=== PATIENT | female | born 1990 | race Caucasian/White ===

== ENCOUNTER 2016-04-21 22:44 | Inpatient (IN) | payer MEDICAID ==
[~2016-04-21] VITALS: Ht 152.4 cm; Wt 78.0 kg
[~2016-04-21 22:44] MED LIST: ROPIVACAINE 0.2% 20 ML VL EPIDURAL ONE
[2016-04-21 23:01] VITALS: Ht 152.4 cm; Wt 78.0 kg
[2016-04-21] MEDS ORDERED: METOCLOPRAMIDE 10 MG/2 ML VIAL IV PUSH PRN (23:10)
[2016-04-21] MEDS ORDERED: TERBUTALINE 1 MG/ML VIAL SUBQ PRN (23:10)
[2016-04-21] MEDS ORDERED: ONDANSETRON 4 MG VIAL IV PRN (23:10)
[2016-04-21] MEDS ORDERED: FAMOTIDINE 20 MG INJ IV PRN (23:10)
[2016-04-21] MEDS ORDERED: LIDOCAINE 1% 30 ML PF INFILTRATE ONE (23:10)
[2016-04-21] MEDS ORDERED: ALU/MAG/SIM 30 ML UDC PO PRN (23:10)
[2016-04-21] MEDS ORDERED: FAMOTIDINE 20 MG TAB PO PRN (23:10)
[2016-04-21] MEDS ORDERED: ACETAMINOPHEN 325 MG TAB PO PRN (23:10)
[2016-04-21] MEDS ORDERED: CEFAZOLIN (LD/OB) 100 ML IV PRN (23:10)
[2016-04-21] MEDS ORDERED: PROMETHAZINE 25 MG/ML VIAL IV PRN (23:10)
[2016-04-21] MEDS ORDERED: OXYTOCIN 15 UNITS/250 ML NS 250 ML IV SCH (23:10)
[2016-04-21] MEDS ORDERED: LIDOCAINE 1% BUFFERED 1 ML SYR INTRADERM PRN (23:10)
[2016-04-22] MEDS ORDERED: BUTORPHANOL 2 MG/ML VIAL IV PRN
[2016-04-22] MEDS ORDERED: ROPIV/FENT 0.2%-2MCG/ML 100 ML EPIDURAL ONE (01:39)
[2016-04-22] MEDS ORDERED: FENTANYL 100 MCG/2 ML AMP ONE (01:39)
[2016-04-22] MEDS ORDERED: LIDOCAINE 1% 30 ML PF ONE (01:40)
[2016-04-22] MEDS ORDERED: LACT RINGERS 500 ML IV PRN (02:20)
[2016-04-22] MEDS ORDERED: LACT RINGERS 500 ML IV ONE (02:20)
[2016-04-22] MEDS ORDERED: FENTANYL 100 MCG/2 ML AMP EPIDURAL ONE (02:20)
[2016-04-22] MEDS ORDERED: SODIUM CHLORIDE 0.9% 500 ML IV PRN (02:20)
[2016-04-22] MEDS: LACT RINGERS 1,000 ML IV SCH ×4 (02:52→15:30)
[2016-04-22] MEDS: ROPIV/FENT 0.2%-2MCG/ML 100 ML EPIDURAL SCH ×2 (02:52→11:10)
[2016-04-22] MEDS ORDERED: **ONLY ANESTEHSIA MAY ORDER OPIATES WHILE ON EPIDURAL XX SCH (08:00)
[2016-04-22] MEDS ORDERED: OXYTOCIN 15 UNITS/250 ML NS 250 ML IV SCH ×2 (16:45→23:20)
[2016-04-22 23:10] VITALS: BP_SYST 122; RESP 20
[2016-04-22 23:15] VITALS: BP_SYST 134; RESP 18
[2016-04-22] MEDS ORDERED: BISACODYL 10 MG SUPP RECTAL PRN (23:20)
[2016-04-22] MEDS ORDERED: MAG HYDROX 30 ML UDC PO PRN (23:20)
[2016-04-22] MEDS ORDERED: ZOLPIDEM 5 MG TAB PO PRN (23:20)
[2016-04-22] MEDS ORDERED: TDaP 0.5 ML VIAL IM.VACC ONE (23:20)
[2016-04-22] MEDS ORDERED: MEASLES,MUMPS,RUBELLA VAC SUBQ.VACC ONE (23:20)
[2016-04-22 23:30] VITALS: BP_SYST 94; RESP 18; TEMP 101.4
[2016-04-22] MEDS ORDERED: MISOPROSTOL 100 MCG TAB RECTAL ONE (23:30)
[2016-04-22 23:45] VITALS: BP_SYST 107; RESP 18
[2016-04-22] MEDS: OXYCODONE/APAP 5/325 TAB PO PRN (23:56)
[2016-04-22] MEDS: ASTRINGENT MED PADS 40'S TOPICAL PRN (23:56)
[2016-04-22] MEDS: Ibuprofen 600 MG TAB PO SCH (23:56)
[2016-04-22] MEDS: DERMOPLAST SPRAY TOPICAL PRN (23:56)
[2016-04-23] VITALS (10 sets, daily range): BP systolic 97–134; RESP 16–20; TEMP 97.5–100.1
[2016-04-23] MEDS: OXYCODONE/APAP 5/325 TAB PO PRN (04:09)
[2016-04-23] MEDS: Ibuprofen 600 MG TAB PO SCH ×3 (06:29→17:58)
[2016-04-23] MEDS: DOCUSATE SOD 100 MG CAP PO SCH (09:12)
[2016-04-23] MEDS: ASTRINGENT MED PADS 40'S TOPICAL PRN (14:21)
[2016-04-24] MEDS: Ibuprofen 600 MG TAB PO SCH ×3 (00:02→11:13)
[2016-04-24 05:41] VITALS: BP_SYST 133; RESP 18; TEMP 97.5
[2016-04-24] MEDS: DOCUSATE SOD 100 MG CAP PO SCH (09:01)
[2016-04-24 09:30] VITALS: BP_SYST 130; RESP 16; TEMP 97.9
[2016-04-24 09:41] VITALS: BP_SYST 130; RESP 16; TEMP 97.9
[2016-04-24] MEDS ORDERED: TDaP 0.5 ML VIAL IM.VACC ONE (10:09)
[2016-04-24] MEDS: DERMOPLAST SPRAY TOPICAL PRN (10:13)
== END 2016-04-24 11:17 | disposition home or self-care (01) | DRG 775 ==
LOC: LDOP 22:44 → LD 23:08 → OB 04-23 01:50
PROVIDERS: ADMIT Obstetrics & Gynecology; ATTEND Obstetrics & Gynecology
PROC: 10E0XZZ Delivery of Products of Conception, External Approach (ICD-10-PCS; principal; 2016-04-22)
PROC: 0KQM0ZZ Repair Perineum Muscle, Open Approach (ICD-10-PCS; 2016-04-22)
PROC: 10907ZC Drainage of Amniotic Fluid, Therapeutic from Products of Conception, Via Natural or Artificial Opening (ICD-10-PCS; 2016-04-22)
CPT/HCPCS: 59025; 81002; 82803; 85014; 85018; 85025; 96372